=== PATIENT | female | born 1975 | race Caucasian/White ===

== ENCOUNTER → 2017-05-13 | Outpatient (CLI) | payer BC ==
[2016-09-10 14:32] VITALS: BP 143/60
--- NOTE | 2017-05-13 19:55 | MG ---
Examination: Bilateral diagnostic mammogram and right breast ultrasound. Clinical history: Right breast pain with milky pinky discharge from the right breast. Technique: Multiple digital images of both breasts were obtained. Targeted right breast ultrasound wa s also obtained evaluating the retroareolar region of the right breast. Comparison: None available. Findings: The breasts are composed of scattered fibroglandular densities. There is a 1 cm oval mass with associ ated coarse calcifications seen in the inferior medial aspect of the left breast, consistent with a s enescent fibroadenoma. No suspicious mass, area of architectural distortion or suspicious cluster of microcalcifications is noted. Targeted right breast ultrasound evaluating the retroareolar region of the right breast reveals no so nographic abnormality. Dense fibroglandular tissue is present in the retroareolar region. No suspicio us cystic or solid mass is noted. Impression: 1. No mammographic or sonographic evidence of malignancy. The patient however gives a history of a mi lky pink discharge from the right nipple. BI-RADS category 0 (ZERO) - ASSESSMENT INCOMPLETE; ADDITIONAL IMAGING IS NEEDED. Recommend a bilateral breast MRI with intravenous contrast for further evaluation of the bloody nippl e discharge. Diagnostic CAD was utilized and reviewed. * 0 (ZERO) - ASSESSMENT INCOMPLETE; ADDITIONAL IMAGING IS NEEDED. * 0C - ASSESSMENT INCOMPLETE, NEEDS ADDITIONAL IMAGING EVALUATION AND/OR PRIOR MAMMOGRAMS FOR COMPARI SON. * 1/1 (ONE) - NEGATIVE. * 2/II (TWO) - BENIGN FINDINGS. * 3/III (THREE) - PROBABLY BENIGN FINDING; SHORT INTERVAL FOLLOW-UP SUGGESTED. * 4/IV (FOUR) - SUSPICIOUS ABNORMALITY; BIOPSY SHOULD BE CONSIDERED. * 5/V - HIGHLY SUSPICIOUS OF MALIGNANCY; BIOPSY SHOULD BE PERFORMED. * 6/ - KNOWN BIOPSY PROVEN MALIGNANCY-APPROPRIATE ACTION SHOULD BE TAKEN. A NEGATIVE X-RAY REPORT SHOULD NOT DELAY BIOPSY IF A DOMINANT OR CLINICALLY SUSPICIOUS MASS IS PRESENT; 4 TO 8 PERCENT OF CANCERS ARE NOT IDENTIFIED BY X-RAY. A NEGATIVE REPORT MAY REINFORCE THE CLINICAL IMPRESSION. ADENOSIS AND DENSE BREASTS MAY OBSCURE AN UNDERLYING NEOPLASM. Reported By:
== END ==
LOC: RAD 12:56
PROVIDERS: ATTEND Nurse Practitioner Family
DX: N64.59 Other signs and symptoms in breast (principal)
CPT/HCPCS: 76642; 77066